=== PATIENT | male | born 1980 | race African-American/Black ===

== ENCOUNTER 2016-06-30 08:24 | Emergency (ER) | payer BC ==
[~2016-06-30] VITALS: Ht 175.3 cm; Wt 91.4 kg
[~2016-06-30 08:24] MED LIST: AMOXICILLIN875 MG PO; HUMULIN N100 UNIT/1 SQ; HUMULIN R100 UNITS/ IM/SC; IBUPROFEN200 M1 PO; NEURONTIN100 MG PO; NOVOLIN R100 UNIT/1 IM; TRAMADOL HCL50 MG PO
[2016-06-30 08:30] VITALS: BP 108/90
== END 2016-06-30 09:20 | disposition home or self-care (01) ==
LOC: EME 08:24
DX: R22.2 Localized swelling, mass and lump, trunk (principal); E11.9 Type 2 diabetes mellitus without complications; Z79.4 Long term (current) use of insulin
CPT/HCPCS: 99281; 99283

== ENCOUNTER 2016-11-23 12:45 | Emergency (ER) | payer BC ==
[~2016-11-23] VITALS: Ht 175.3 cm; Wt 87.5 kg
[2016-11-23 13:38] LABS: BASE EXCESS -2.7 mEq/L (-3 to +3); BICARBONATE 21.9 mEq/L (22-26); CARBOXY HGB 3.9 % (0-5); PCO2 37 mm Hg (35-45); PO2 76 mm Hg (80-100); pH 7.38 (7.35-7.45)
[2016-11-23 13:39] LABS: COMMENTS - BLOOD GASES NEG A+C+; DEVICE ROOM AIR; SITE LR; TOTAL RESP RATE 16 resp/min
[2016-11-23 13:59] LABS: CHLORIDE 95 mEq/L (99-109); POTASSIUM 4.5 mEq/L (3.7-5.4); SODIUM 131 mEq/L (136-147)
[2016-11-23 14:03] LABS: ANION GAP 14 MEQ/L (2-14)
[2016-11-23 14:04] LABS: TOTAL BILIRUBIN 0.6 mg/dL (0.0-1.0)
[2016-11-23 14:05] LABS: ALKALINE PHOSPHATASE 117 IU/L (3-129); GFR ESTIMATE (CALCULATED) > 59 mL/min/
[2016-11-23 14:06] LABS: UREA NITROGEN (BUN) 15 mg/dL (9-23)
[2016-11-23] MEDS ORDERED: NOVOLIN,HU100 UNITS1 SC (14:08)
[2016-11-23 14:10] LABS: GLUCOSE 583 mg/dL (70-99)
[2016-11-23 14:11] LABS: TROP-I INTERPRETATION NEGATIVE; TROPONIN-I < 0.01 ng/mL (0.0-0.30)
[2016-11-23 14:45] LABS: D-DIMER ELISA < 150.00 ng/mLDDU (<230)
[2016-11-23 14:47] LABS: EOSINOPHIL (%) 0.5 % (0-5); HEMATOCRIT 43.4 % (38.0-50.0); IMMATURE GRANULOCYTE (%) 0.3 % (0.0-0.7); LYMPHOCYTE COUNT 1.2 K/uL (1.0-2.8); MCHC 33.6 G/DL (30.0-36.0); MCV 86.3 FL (86-99); MONOCYTE (%) 8.6 % (3-12); MONOCYTE COUNT 0.5 K/uL (0-0.8); NEUTROPHIL (%) 70.1 % (45-76); PLATELET COUNT 223 K/uL (156-360); RBC DIS.WIDTH-CV 12.2 % (11.8-14.6); RBC DIS.WIDTH-SD 38.5 % (39-53); RED BLOOD COUNT 5.03 M/uL (4.00-5.50); WHITE BLOOD COUNT 5.7 K/uL (4.1-10.2)
[2016-11-23 14:53] LABS: ADD MIUA? NO; BILIRUBIN NEGATIVE; BLOOD NEGATIVE; COLOR STRAW ((YELLOW)); GLUCOSE (STRIP) >=500; KETONES 5; LEUKOCYTES NEGATIVE; NITRITE NEGATIVE; PROTEIN (STRIP) NEGATIVE; SPECIFIC GRAVITY 1.032 (1.000-1.030); UCUL ADDED? NO; UROBILINOGEN 0.2 MG/DL (0.2-1.0)
[2016-11-23 15:22] LABS: POINT-OF-CARE METER ID UU14100415; POINT-OF-CARE USER ID STWBNM
[2016-11-23 17:31] VITALS: BP 110/79
[2016-11-23 17:33] LABS: POINT-OF-CARE METER ID UU14100415; POINT-OF-CARE USER ID STWBNM
[2016-11-25 14:21] LABS: POINT-OF-CARE METER ID UU13113778
== END 2016-11-23 18:07 | disposition home or self-care (01) ==
LOC: EME 12:45
PROVIDERS: Physician Assistant
DX: E11.65 Type 2 diabetes mellitus with hyperglycemia (principal); R11.2 Nausea with vomiting, unspecified; Z79.4 Long term (current) use of insulin
CPT/HCPCS: 36600; 71020; 80048; 80053; 81003; 82010; 82803; 82948; 84484; 85025; 85027; 85379; 93005; 99281; 99285; J7030

== ENCOUNTER 2017-09-12 10:57 | Inpatient (IN) | payer OTHER ==
[~2017-09-12] VITALS: Ht 175.3 cm; Wt 88.6 kg
[~2017-09-12 10:57] MED LIST changes: +NOVOLIN,HU100 UNITS1 SC
[2017-09-12 13:08] LABS: BASOPHIL (%) 0.3 % (0-1); EOSINOPHIL (%) 0.6 % (0-5); HEMATOCRIT 36.9 % (38.0-50.0); HEMOGLOBIN 12.8 G/DL (12.5-16.6); IMMATURE GRANULOCYTE (%) 0.3 % (0.0-0.7); LYMPHOCYTE (%) 15.8 % (15-42); MCH 29.4 PG (29.0-34.0); MCHC 34.7 G/DL (30.0-36.0); MCV 84.8 FL (86-99); MONOCYTE (%) 9.7 % (3-12); MONOCYTE COUNT 0.6 K/uL (0-0.8); NEUTROPHIL (%) 73.3 % (45-76); NEUTROPHIL COUNT 4.7 K/uL (1.8-6.4); PLATELET COUNT 271 K/uL (156-360); RBC DIS.WIDTH-CV 11.7 % (11.8-14.6); RBC DIS.WIDTH-SD 35.8 % (39-53); RED BLOOD COUNT 4.35 M/uL (4.00-5.50); WHITE BLOOD COUNT 6.4 K/uL (4.1-10.2)
[2017-09-12 13:16] LABS: CHLORIDE 98 mEq/L (99-109); POTASSIUM 4.7 mEq/L (3.7-5.4); SODIUM 135 mEq/L (136-147)
[2017-09-12 13:18] LABS: GLUCOSE 342 mg/dL (70-99)
[2017-09-12 13:22] LABS: GFR ESTIMATE (CALCULATED) > 59 mL/min/ (58.99-99999)
[2017-09-12 13:23] LABS: UREA NITROGEN (BUN) 11 mg/dL (9-23)
[2017-09-12] MEDS ORDERED: ALEVE220 MG PO (13:36)
[2017-09-12] MEDS ORDERED: NOVOLIN N100 UNITS/ SC (13:36)
[2017-09-12] MEDS ORDERED: ONE DAILY1 EAC3 PO (13:36)
[2017-09-12] MEDS ORDERED: A AND D OINTM42.5 GM TP (13:37)
[2017-09-12 15:53] VITALS: BP 128/78
[2017-09-12 23:24] VITALS: BP 127/74
[2017-09-13 06:55] VITALS: BP 125/71
[2017-09-13 10:29] LABS: HEMOGLOBIN A1c (GLYCOHEMOGLOB) 12.7 % (Below 5.7)
[2017-09-13 15:17] VITALS: BP 113/77
[2017-09-14 01:14] VITALS: BP 101/57
[2017-09-14 07:23] VITALS: BP 117/57
[2017-09-14 09:25] LABS: HEMATOCRIT 37.6 % (38.0-50.0); HEMOGLOBIN 12.3 G/DL (12.5-16.6); MCH 28.4 PG (29.0-34.0); MCHC 32.7 G/DL (30.0-36.0); MCV 86.8 FL (86-99); PLATELET COUNT 268 K/uL (156-360); RBC DIS.WIDTH-CV 11.9 % (11.8-14.6); RED BLOOD COUNT 4.33 M/uL (4.00-5.50); WHITE BLOOD COUNT 4.4 K/uL (4.1-10.2)
[2017-09-14 09:49] LABS: CHLORIDE 104 MEQ/L (99-109); CREATININE 0.8 MG/DL (0.6-1.3); GFR ESTIMATE (CALCULATED) > 59 mL/min/ (58.99-99999); GLUCOSE 199 mg/dL (70-99); POTASSIUM 4.5 MEQ/L (3.7-5.4); SODIUM 140 MEQ/L (136-147); UREA NITROGEN (BUN) 13 mg/dL (9-23)
[2017-09-14 16:09] VITALS: BP 117/75
[2017-09-14 19:59] VITALS: BP 137/86
[2017-09-14 22:41] VITALS: BP 128/80
[2017-09-15 06:49] LABS: HEMATOCRIT 37.3 % (38.0-50.0); HEMOGLOBIN 12.4 G/DL (12.5-16.6); MCHC 33.2 G/DL (30.0-36.0); MCV 87.4 FL (86-99); PLATELET COUNT 277 K/uL (156-360); RBC DIS.WIDTH-SD 38.4 % (39-53); RED BLOOD COUNT 4.27 M/uL (4.00-5.50); WHITE BLOOD COUNT 4.9 K/uL (4.1-10.2)
[2017-09-15 06:51] VITALS: BP 125/73
[2017-09-15 07:17] LABS: CHLORIDE 101 MEQ/L (99-109); CREATININE 0.8 MG/DL (0.6-1.3); GFR ESTIMATE (CALCULATED) > 59 mL/min/ (58.99-99999); POTASSIUM 4.7 MEQ/L (3.7-5.4); SODIUM 136 MEQ/L (136-147); UREA NITROGEN (BUN) 13 mg/dL (9-23)
[2017-09-15 07:18] LABS: GLUCOSE 301 mg/dL (70-99)
[2017-09-15] MEDS ORDERED: LEVEMIR100 UNIT/2 SC (11:56)
[2017-09-15 15:30] VITALS: BP 105/67
[2017-09-15 20:17] VITALS: BP 141/90
[2017-09-15 23:19] VITALS: BP 123/63
[2017-09-16 04:03] VITALS: BP 105/61
[2017-09-16 06:50] VITALS: BP 122/72
[2017-09-16 08:40] LABS: HEMATOCRIT 35.8 % (38.0-50.0); MCH 28.9 PG (29.0-34.0); MCHC 33.5 G/DL (30.0-36.0); MCV 86.3 FL (86-99); PLATELET COUNT 252 K/uL (156-360); RBC DIS.WIDTH-CV 11.9 % (11.8-14.6); RBC DIS.WIDTH-SD 37.7 % (39-53); RED BLOOD COUNT 4.15 M/uL (4.00-5.50); WHITE BLOOD COUNT 6.4 K/uL (4.1-10.2)
[2017-09-16 09:12] LABS: CHLORIDE 102 MEQ/L (99-109); CREATININE 0.8 MG/DL (0.6-1.3); GFR ESTIMATE (CALCULATED) > 59 mL/min/ (58.99-99999); GLUCOSE 284 mg/dL (70-99); POTASSIUM 4.5 MEQ/L (3.7-5.4); SODIUM 135 MEQ/L (136-147); UREA NITROGEN (BUN) 12 mg/dL (9-23)
[2017-09-16 11:03] VITALS: BP 110/69
[2017-09-16 15:15] VITALS: BP 115/75
[2017-09-16 18:57] VITALS: BP 130/81
[2017-09-16 22:47] VITALS: BP 117/62
[2017-09-17 05:24] LABS: HEMATOCRIT 35.6 % (38.0-50.0); HEMOGLOBIN 12.1 G/DL (12.5-16.6); MCH 29.4 PG (29.0-34.0); MCV 86.4 FL (86-99); PLATELET COUNT 264 K/uL (156-360); RBC DIS.WIDTH-CV 11.9 % (11.8-14.6); RBC DIS.WIDTH-SD 37.5 % (39-53); RED BLOOD COUNT 4.12 M/uL (4.00-5.50); WHITE BLOOD COUNT 6.8 K/uL (4.1-10.2)
[2017-09-17 06:01] LABS: CHLORIDE 104 MEQ/L (99-109); CREATININE 0.8 MG/DL (0.6-1.3); GFR ESTIMATE (CALCULATED) > 59 mL/min/ (58.99-99999); GLUCOSE 161 mg/dL (70-99); POTASSIUM 4.1 MEQ/L (3.7-5.4); SODIUM 141 MEQ/L (136-147); UREA NITROGEN (BUN) 12 mg/dL (9-23)
[2017-09-17 06:55] VITALS: BP 116/59
[2017-09-17 15:20] VITALS: BP 133/83
[2017-09-17 23:18] VITALS: BP 117/68
[2017-09-18 07:15] VITALS: BP 119/73
[2017-09-18] MEDS ORDERED: AUGMENTIN875 MG PO (11:55)
[2017-09-18] MEDS ORDERED: NOVOLOG 10100 UNITS/ SC (11:55)
[2017-09-18] MEDS ORDERED: LEVEMIR100 UNIT/2 SC (11:55)
[2017-09-18 15:35] VITALS: BP 137/75
== END 2017-09-18 18:45 | disposition home or self-care (01) | DRG 617 ==
LOC: EME 10:57 → 5EAST 13:54 → EDOF 13:54 → ENRESERV 14:12 → 5EAST 15:11
PROVIDERS: Emergency Medicine; Hospitalist; Physician Assistant
PROC: 0Y6Q0Z2 Detachment at Left 1st Toe, Mid, Open Approach (ICD-10-PCS; principal; 2017-09-15)
DX: E11.69 Type 2 diabetes mellitus with other specified complication (principal); M86.672 Other chronic osteomyelitis, left ankle and foot; E11.621 Type 2 diabetes mellitus with foot ulcer; L97.524 Non-pressure chronic ulcer of other part of left foot with necrosis of bone; S81.802A Unspecified open wound, left lower leg, initial encounter; S81.801A Unspecified open wound, right lower leg, initial encounter; W22.8XXA Striking against or struck by other objects, initial encounter; B95.1 Streptococcus, group B, as the cause of diseases classified elsewhere; E11.42 Type 2 diabetes mellitus with diabetic polyneuropathy; Y92.63 Factory as the place of occurrence of the external cause; Y99.0 Civilian activity done for income or pay; Z79.4 Long term (current) use of insulin
CPT/HCPCS: 73630; 73720; 80048; 82948; 83036; 83605; 85025; 85027; 87040; 87070; 87075; 87077; 87186; 87205; 88305; 88311; 93971; 99281; 99285; A6260; J1650; J1815; J2250; J2405; J2543; J3010; J3370; J7050; S0020